=== PATIENT | female | born 1945 | race Caucasian/White ===

== ENCOUNTER 2018-11-17 06:48 | Inpatient (IN) ==
[2018-11-17] MEDS ORDERED: NS 1,000 ML IV ONE ×3 (07:26→09:27)
[2018-11-17] MEDS ORDERED: ZOFRAN IV ONE (07:26)
[2018-11-17] MEDS ORDERED: MORPHINE IV ONE ×2 (07:27→08:25)
--- NOTE | 2018-11-17 07:28 | PROVIDER DOCUMENTATION ---
HPI-Abdominal Pain/GI Problem - General Chief Complaint: Flank Pain Stated Complaint: RT FLANK PAIN/HAVE ONE KIDNEY Time Seen by Provider: 11/17/18 07:24 Source: patient Allergies/Adverse Reactions: Patient Allergies Allergy/AdvReac Type Severity Reaction Status Date / Time codeine [Codeine] Allergy Intermediate ITCHING Verified 11/17/18 08:14 hydromorphone HCl * Allergy Unknown ITCHING Verified 11/17/18 08:14 [From Dilaudid] cefaclor [From Ceclor] Allergy Unknown Verified 11/17/18 08:14 fesoterodine fumarate * Allergy DRY MOUTH Verified 11/17/18 08:14 [From Toviaz] Home Medications: Home Medication List Medication Instructions Recorded Confirmed Last Taken Type Bupropion X.l. [Wellbutrin Xl] 1 tab PO DAILY 12/13/17 11/17/18 Unknown History Sertraline HCl [Zoloft] 100 mg PO 12/13/17 Unknown History Omeprazole 1 cap PO DAILY 11/17/18 11/17/18 Unknown History - History of Present Illness-ABD Nature of Presenting Problems: COMPLAINS OF PAIN RIGHT FLANK SIMILAR TO PRIOR KIDNEY STONES. NO FEVER. NO HEMATURIA. NAUSEA / VOMITING PRESENT. NO DIARRHEA Abdominal Pain Onset Location: reports: flank Pain Radiation: reports: no radiation Quality of Pain: reports: sharp Severity in ED: reports: moderate Onset/Duration: reports: 1 hour ago, 1-3 hours ago Timing: reports: still present Activities at Onset: reports: none Modifying Factors: improves with: nothing Associated Symptoms: reports: vomiting. denies: chest pain, fever/chills Review of Systems - Adult - REVIEW OF SYSTEMS - ADULT Constitutional: reports: no symptoms reported Cardiovascular: reports: no symptoms reported Respiratory: reports: no symptoms reported Neurological: reports: no symptoms reported All Other Systems: Reviewed and Negative Past History - Adult - PAST MEDICAL HISTORY-ADULT Review of Records: reports: Nursing Assessment Review, Medications Reviewed, Social history reviewed & non-contributory. Major Childhood Illnesses: reports: denies history Cardiovascular: reports: denies history Respiratory: reports: denies history Gastrointestinal: reports: GERD, hemorrhoids Obstetrical/Gynecological: reports: denies history Genitourinary: reports: kidney stones, chronic UTI's Musculoskeletal: reports: arthritis Neurological: reports: denies history Psychiatric: reports: depression Endocrine/Immune: reports: denies history Other Conditions: reports: denies history - PRIOR SURGERIES/PROCEDURES Surgical/Procedure History: reports: appendectomy, hysterectomy, other ( hemmorhoids) - PRIOR HOSPITALIZATIONS Prior Hospitalizations: reports: none - IMMUNIZATION STATUS Childhood Immunizations: NUTD Flu Vaccine: NUTD - FAMILY HISTORY Family History: reviewed, not pertinent - SOCIAL HISTORY Substance Use: denies Physical Exam-General - PHYSICAL EXAM-ADULT Initial Vital Signs Reviewed: Yes - CONSTITUTIONAL General Appearance: alert - EYES Eyes: PERRL/EOMI - HEAD, EARS, NOSE, MOUTH & THROAT HENMT: normocephalic/atraumatic, moist mucous membranes - NECK Neck: non-tender, full range of motion, supple - RESPIRATORY Respiratory: lungs clear, normal breath sounds, no respiratory distress - CARDIOVASCULAR Cardiovascular: normal peripheral pulses, regular rate, rhythm - GASTROINTESTINAL (ABDOMEN) Abdominal Exam: normal bowel sounds, soft, no organomegaly, no pulsatile mass, tenderness (RT FLANK). negative: distended, guarding - MUSCULOSKELETAL Back Exam: normal inspection Extremity: normal range of motion, normal gait, normal inspection - SKIN Integumentary: warm/dry. negative: rash - NEUROLOGIC Neurologic: no motor/sensory deficits Progress - PLAN OF CARE/RESULTS Progress/Plan/Lab Results: Vital Signs - 8 hr 11/17/18 06:55 Temperature 98.0 F Pulse Rate 80 Respiratory Rate 20 Blood Pressure 126/104 O2 Sat by Pulse Oximetry 100 Orders Category Date Time Status Saline Loc NOW Care 11/17/18 07:[address] ABDOMEN/PELVIS W/O CONTRAST [CT] Stat Exams 11/17/18 07:26 Ordered CBC WITH ELECTRONIC DIFF [HEME] Stat Lab 11/17/18 07:10 Ordered CMP [COMPREHENSIVE METABOLIC PANEL] [CHEM] Stat Lab 11/17/18 07:10 Uncollected UA NIMS W/REFLEX CULT [URINALYSIS] Stat Lab 11/17/18 06:51 Uncollected Morphine Med 11/17/18 07:27 Once 3 mg IV NOW ONE Ns 1000 ml IV Bolus X1 Med 11/17/18 07:26 Ordered 0.9% Sodium Chloride Inj [Ns] 1,000 ml IV 999 mls/hr Ondansetron [Zofran] Med 11/17/18 07:26 Once 4 mg IV NOW ONE Result Diagrams: 11/17/18 08:30 11/17/18 08:30 - REASSESSMENT Reassessment #1 Time Reassessed: 09:26 Status: improving (still in pain. ct reveals 4 mm stone distal rt ureter . discussed with dr bronson will admit. dr magana aware and will consult and see patient) Departure - Departure Date of Disposition Decision: 11/17/18 Time of Disposition Decision: 09:26 DIAGNOSIS: Left ureteral calculus Disposition: ADMITTED INPATIENT 09 Certified Medical Emergency: Emergent Condition: Stable Referrals and Follow-Ups: Randy Bronson MD [Primary Care Provider] - - Critical Care Note This patient required my direct & personal management of CC.: No Attestation - Physician/ IGOR Attestation Patient care was provided by Advanced Practice Provider:: No The physician spent face to face time with patient:: Yes Advanced Practice Provider documentation review:: Supervising physician onsite and consulted in the evaluation and care of this patient. The physician did have a face to face encounter with the patient.
--- NOTE | 2018-11-17 08:32 | Diag Imaging Result Doc PS360 ---
EXAM: CT ABDOMEN/PELVIS W/O CONTRAST 11/17/2018 HISTORY: FLANK PAIN TECHNIQUE: This exam was performed using automated exposure control, adjustment of mA or kV according to patient size, and/or use of iterative reconstruction technique. COMMENT: There is a large hiatal hernia. There are increased interstitial opacities present in the right lower lobe and to some extent the left lower lobe similar in appearance to 05/30/2016. There are denser irregular opacities posteriorly in the right costophrenic sulcus and laterally which may represent pneumonia. This was not present previously. There is marked hydronephrosis on the right with hydroureter the latter was not present at the time the previous examination and there is a stone present in the distal ureter measuring over 4 mm in diameter. There has been left nephrectomy. There are no apparent gallstones. There are granulomata in the liver and spleen. There is some stool throughout the colon. Small bowel is not distended. The aorta is normal in caliber. There is no evidence of significant adenopathy. There has been previous hysterectomy. There is no evidence of appendicitis. The urinary bladder is unremarkable. There is calcium pyrophosphate deposition in the symphysis pubis. There is ankylosis of the facet joints at L5-S1. There is no evidence of acute bony abnormality. There has been kyphoplasty at L2. IMPRESSION: 1. Hiatal hernia and right lower lobe pneumonia. 2. Right hydronephrosis and distal ureterolithiasis. There may be a parapelvic cysts contributing to the appearance of hydronephrosis on the right which were present previously. Electronically signed by Quique Vasquez 11/17/2018 8:29 AM
[2018-11-17] MEDS ORDERED: BENADRYL ONE (08:35)
[2018-11-17] MEDS ORDERED: BENADRYL IV ONE (08:36)
[2018-11-17 08:39] LABS: BASO# 0.01 X1000 (0.0-0.2); BASO% 0.1 % (0.0-0.8); EOS# 0.05 X1000 (0.0-0.7); EOS% 0.7 % (0.0-10.0); IMM GRAN# 0.02 X1000 (0.0-0.04); IMM GRAN% 0.3 % (0.0-0.5); LYMPH% 20.9 % (20.5-51.1); MCH 29.8 PG (27-31); MCHC 33.3 g/dL (33-37); MCV 89.4 FL (81-99); MONO# 0.55 X1000 (0.11-0.59); MONO% 8.2 % (1.7-9.3); MPV 11.6 FL (7.4-10.4); NEUT# 4.66 X1000 (1.4-6.5); NEUT% 69.8 % (42.2-75.2); PLT 126 X1000 (130-400); RDW 14.4 % (11.5-14.5); WBC 6.69 X1000 (4.8-10.8)
[2018-11-17 08:52] LABS: URINE SOURCE CATH
[2018-11-17 08:55] LABS: BILIRUBIN URINE NEGATIVE (NEGATIVE); BLOOD URINE MODERATE (NEGATIVE); COLOR YELLOW; GLUCOSE URINE NEGATIVE (NEGATIVE); KETONE URINE NEGATIVE (NEGATIVE); LEUKOCYTES URINE NEGATIVE (NEGATIVE); NITRITE URINE NEGATIVE (NEGATIVE); PH URINE 5.5; PROTEIN URINE NEGATIVE (NEGATIVE); SP GRAVITY URINE 1.017; TURBIDITY URINE CLEAR (CLEAR); UR EPITHELIAL CELLS <10 /HPF (<10); URINE BACTERIA NEGATIVE /HPF; URINE RBC 20-40 /HPF (<10); URINE WBC <10 /HPF (<10); UROBILINOGEN URINE NORMAL (NORMAL)
[2018-11-17 09:06] LABS: ALB/GLOB RATIO 1.4; ALBUMIN 3.9 g/dL (3.5-5.0); CALCIUM 9.4 mg/dL (8.8-10.2); CREATININE 1.6 mg/dL (0.5-0.9); POTASSIUM 5.4 mmol/L (3.5-5.1); TOTAL BILIRUBIN 0.46 mg/dL (0.20-1.00); TOTAL PROTEIN 6.7 g/dL (6.3-8.3)
[2018-11-17] MEDS ORDERED: LEVAQUIN 500 MG/D5W 500 MG/100 ML IVPB IV ONE (09:59)
[2018-11-17] MEDS ORDERED: HURRICAINE SPRAY (DOSE) ONE (10:10)
[2018-11-17] MEDS ORDERED: XYLOCAINE-MPF 2% ONE (10:16)
[2018-11-17] MEDS ORDERED: ROBINUL ONE (10:16)
[2018-11-17] MEDS ORDERED: DIPRIVAN 1% ONE (10:16)
[2018-11-17] MEDS ORDERED: ZEMURON ONE (10:17)
[2018-11-17] MEDS ORDERED: QUELICIN (DOSE) ONE (10:17)
[2018-11-17] MEDS ORDERED: FENTANYL ONE (10:17)
[2018-11-17] MEDS ORDERED: LEVAQUIN 500 MG/D5W 500 MG/100 ML IVPB ONE (10:39)
[2018-11-17] MEDS ORDERED: ZOFRAN ONE (10:42)
[2018-11-17] MEDS ORDERED: EPHEDRINE ONE (11:16)
[2018-11-17] MEDS ORDERED: SODIUM CHLORIDE 0.9% 10 ML ONE (11:16)
[2018-11-17] MEDS ORDERED: NORCO-7.5 PO PRN (11:50)
--- NOTE | 2018-11-17 12:26 | Diag Imaging Result Doc PS360 ---
EXAM: FLUROSCOPY CYSTO 11/17/2018 HISTORY: RT.STENT,RT.STONE TECHNIQUE: Seven images fluoroscopy time nine seconds dose 13 mGy COMMENT: There has been kyphoplasty at the T11 and L2 levels. A right ureteral stent was placed by Dr. Coats. IMPRESSION: Right ureteral stent placement. Electronically signed by Quique Vasquez 11/17/2018 12:23 PM
[2018-11-17] MEDS: MORPHINE ONE ×2 (13:25→22:17)
[2018-11-17] MEDS: MORPHINE IV PRN ×4 (15:12→23:32)
--- NOTE | 2018-11-17 17:56 | CONSULTATION ---
DATE OF CONSULTATION: 11/17/2018 CONSULTING PHYSICIAN: Emergency room staff. CONSULTATION FOR: Obstructing ureteral stone in the setting solitary kidney, intractable pain, nausea. HISTORY OF PRESENT ILLNESS: 72-year-old female known to me secondary to history of left ureteropelvic junction obstruction and complex peripelvic cysts for which she underwent left nephrectomy in 2014. She has been followed for her solitary kidney. She was seen last in office and sent by me in November 2017 at which point, her ultrasound was done and the kidney appeared to be healthy without evidence of urolithiasis. She developed severe right flank pain that started in back and radiated over her lower abdomen. The pain is sharp, constant, 10/10 in severity. Nothing makes it worse. Nothing makes it better. She reports associated nausea and chills. She denies gross hematuria, vomiting. She presented to the emergency room where CT scan was done revealing 4 mm right distal ureteral obstructing stone with significant hydroureteronephrosis. She continues to have significant pain. PAST MEDICAL HISTORY: GERD, diabetes mellitus, peripelvic renal cyst, stress urine incontinence, cystocele, rectocele, depression. PAST SURGICAL HISTORY: Appendectomy, herniorrhaphy, rotator cuff repair, bladder tack, left robotic nephrectomy. ALLERGIES: Codeine, Dilaudid, cefaclor, fesoterodine. HOME MEDICATIONS: Wellbutrin, Zoloft. SOCIAL HISTORY: Occasional caffeine, denies tobacco, alcohol or illicit drug use. FAMILY HISTORY: Negative for malignancies. REVIEW OF SYSTEMS: Reviewed in 12 systems and is negative with exception to the HPI. PHYSICAL EXAMINATION: T 98, P 80, BP 126/104.General: Pleasant female in mild distress secondary to pain. HEENT: Normocephalic, atraumatic. Cardiovascular: Regular rate, rhythm. Pulmonary: Bilateral breath sounds. Abdomen: Tender to palpation on the right side. No involuntary guarding. No peritoneal signs noted. Back: CVA tenderness on the right. : Bladder is nontender to palpation. Dermatologic: No obvious skin rashes. Neurologic: Alert and oriented x3. Psychiatric: Appropriate mood and affect. PERTINENT LABS: Her white cell count is 7000, platelet count is 126,000, hematocrit 42, potassium is 5.4, creatinine is 1.6. Her urinalysis positive for blood, a few white cells but negative for bacteria. PERTINENT IMAGES: CT abdomen and pelvis without contrast per HPI revealing obstructing right distal ureteral stone. ASSESSMENT AND PLAN: A 72-year-old female with solitary right kidney who has obstructing distal ureteral stone, significant hydronephrosis, intractable pain, nausea. I have discussed with the patient that given her solitary kidney, it is a semiemergent situation. We discussed cystoscopy with right ureteroscopy, laser lithotripsy, stone basket extraction, possible ureteral stent placement with risks including, but not limited to, bleeding, infection, injury to the kidney, injury to adjacent structures, inability to remove the entire stone and need for additional interventions explained. She voiced understanding wants to proceed. PLAN: To operating room now for cystoscopy, right ureteroscopy, laser lithotripsy, stone basket extraction, placement of right ureteral stent. cc: MD Randy Bell MD
[2018-11-17] MEDS ORDERED: ZOFRAN IV PRN (19:27)
[2018-11-17] MEDS ORDERED: DESYREL PO PRN (19:32)
[2018-11-17] MEDS: BENADRYL IV PRN (21:12)
[2018-11-17] MEDS: NS 1,000 ML IV SCH (21:13)
--- NOTE | 2018-11-18 01:53 | OPERATIVE NOTE ---
PROCEDURE DATE: 11/17/2018 SURGEON: Rodolfo Coats MD PREOPERATIVE DIAGNOSIS: Solitary right kidney, right distal ureteral stone, hydronephrosis, intractable pain, nausea. PROCEDURE: Cystoscopy, right ureteroscopy with stone basket extraction, placement of 6-[place], 24 cm right ureteral stent. INDICATIONS: A 72-year-old female with solitary kidney, who presented with obstructing distal ureteral stone and significant pain and nausea. She was counseled on intervention with ureteroscopy, and desires to proceed. FINDINGS: Obstructing distal ureteral stone, approximately 1 cm away from the ureteral orifice. It was successfully extracted with a basket. There was significant mucosa of the distal right ureter, and given her solitary kidney and that mucosal edema, a ureteral stent was placed. The stone was sent off for analysis. DESCRIPTION OF PROCEDURE: After obtaining informed consent, the patient was brought to the operating room. Perioperative antibiotics and general endotracheal anesthesia were administered. She was placed in lithotomy position, prepped and draped in sterile fashion. A 21-[place]izen [place] rigid cystoscope was used to gain access to the bladder, which was examined in systematic fashion. Of note, she has a grade 3 cystocele, as well as a vaginal prolapse and rectocele. Bladder was inspected with the cystoscope, without evidence of mucosal lesions, excessive trabeculations, diverticula noted. There were no stones within the bladder lumen. We turned our attention to the right ureteral orifice, which was cannulated with PTFE wire. There was resistance just a centimeter or 2 from the ureteral orifice, but eventually I was able to introduce the wire up to the level of the right renal pelvis, as confirmed by fluoroscopy. I then introduced the rigid ureteroscope alongside of the wire, and the stone was seen within a centimeter from the ureteral orifice. It was jagged in appearance, and was associated with significant mucosal edema. I was able to place a 0 Nitinol basket around the stone, and then gently repositioned it in a more favorable orientation, and guided it out in 1 piece. It was submitted for analysis. Repeat ureteroscopy to the level of the mid ureter revealed fairly significant hydroureteronephrosis, but no evidence of residual stone fragments, and no evidence of ureteral injury. The ureteroscope was removed. Given the significant mucosal edema, and her solitary kidney, we placed a ureteral stent. In standard fashion, a 6-[place], 24 cm stent was advanced over the wire via the cystoscope, with the proximal coil position confirmed fluoroscopically, distal coil directly visualized. The string was left attached to the stent. Bladder was emptied. She was extubated and taken to the PACU for further recovery. ESTIMATED BLOOD LOSS: None. COMPLICATIONS: None. DISPOSITION: To PACU, and subsequently now floor, to be admitted by Dr. Bronson for observation. cc: MD Randy Bell MD
--- NOTE | 2018-11-18 03:18 | HISTORY AND PHYSICAL ---
PRIMARY CARE PHYSICIAN: Dr. Randy Bronson. CHIEF COMPLAINT: Intractable right flank pain. HISTORY OF PRESENT ILLNESS: A 72-year-old white female, with a complicated past medical history, who presents for evaluation of above-mentioned symptoms. Current history of present illness began at approximately 6 a.m. At that time, the patient awoke with intractable right lumbar spine pain. Quickly, the patient's condition progressed to include nausea and vomiting. With the progression of symptoms, the patient presented to the emergency department for further evaluation and management. Full evaluation was pursued. CT scan renal stone search suggested a hiatal hernia and a right lower lobe pneumonia. Right hydronephrosis and distal ureterolithiasis was noted. Laboratory data was significant for hyperkalemia, with a potassium of 5.4, and a creatinine increased from baseline to 1.6. Dr. Coats was consulted, and the patient was taken for surgical intervention. Of note, patient has had mild cough and congestion, but denies fevers, chills, shortness of breath, dysuria, hematuria, or pyuria. PAST MEDICAL HISTORY: 1. Allergic rhinitis. 2. History of acute appendicitis, status post open appendectomy in the . 3. History of atypical chest pain, with negative cardiac evaluation in 2010 and 2013. 4. Multiple brown nevi and actinic keratoses. 5. Bilateral cataracts. 6. Depression/anxiety. 7. Reflux disease. 8. History of lumbar compression fracture, status post kyphoplasty in 2008 and 2012. 9. Hiatal hernia. 10. Hyperlipidemia. 11. Chronic low back pain. 12. Menopause. 13. Microscopic hematuria. 14. History of nephrolithiasis. 15. Osteoarthritis. 16. Osteopenia. 17. History of pelvic cyst. 18. Elevated blood pressure, without the diagnosis of hypertension. 19. Pyelonephritis, ultimately requiring left nephrectomy in 2014. 20. Chronic thrombocytopenia. 21. Urinary incontinence. 22. Uterine prolapse, status post HEIDI in the late . CURRENT MEDICATIONS: 1. Anusol HC suppository q.12 hours as needed. 2. Omeprazole 40 mg daily. 3. Sertraline 100 mg 1-1/2 tablets daily. 4. Wellbutrin XL 150 mg daily. 5. Zofran as needed. ALLERGIES: Patient states she is allergic to Ceclor and Toviaz. SOCIAL HISTORY: Patient denies tobacco, alcohol, or illicit drug use. She is retired from [employer]. She exercises intermittently. FAMILY HISTORY: Patient's father passed at age 86 due to complications of Alzheimer disease. Patient's mother passed at age 78 secondary to complications of breast cancer. REVIEW OF SYSTEMS: A 12 point review of systems was performed. Pertinent positives and negatives are noted in the history of present illness. PHYSICAL EXAMINATION: VITAL SIGNS: Temperature 98.1 degrees, heart rate 74, respirations 15, blood pressure is 113/58. GENERAL: Well-nourished, well-developed, no acute distress. HEENT: Normocephalic, atraumatic. Pupils equal, round, react to light. Extraocular muscles intact. Sclerae anicteric. [place] conjunctivae. Oral and nasopharynx clear, without exudate. NECK: Supple. No lymphadenopathy. No thyromegaly. No bruits auscultated. CARDIOVASCULAR: Regular rate and rhythm. No significant murmurs, rubs, or gallops. PULMONARY: Clear to auscultation bilaterally. ABDOMEN: Soft, nontender, nondistended. Positive bowel sounds. EXTREMITIES: Moves all extremities well. No significant clubbing, cyanosis, or edema. NEUROLOGIC: Cranial nerves 2-12 are grossly intact. Motor and sensory grossly intact. Psychologic examination is appropriate. LABORATORY DATA: White blood cell count 6.69, hemoglobin 14.0, hematocrit 42.0, platelet count 126,000. Sodium 136, potassium 5.4, chloride 105, bicarb 18, BUN 25, creatinine 1.6, glucose 118. Calcium 9.4. Total bilirubin 0.46, total protein 6.7, albumin 3.9, alkaline phosphatase 78, AST 30, ALT 15. ASSESSMENT AND PLAN: A 72-year-old white female, with a complicated past medical history as noted, presents for evaluation of intractable lumbar spine pain, with associated nausea and vomiting. The patient was found to have a distal right ureteral fibrosis with hydronephrosis. She was taken for surgical intervention. A stent was placed. The patient will be admitted to the hospital for further evaluation and management of postoperative stent placement, hyperkalemia, yzcbx-fu-vdxqoek kidney disease, and possible underlying pneumonia. 1. Admit to General Medicine. 2. Symptomatic right ureteral lithiasis, with associated hydronephrosis - The patient is status post surgical intervention with removal and stent placement by Dr. Ananyev. We will aggressively, but cautiously, hydrate. We will continue as needed pain medications. 3. Bxelf-xa-jvpccqw kidney disease - Patient's baseline creatinine is approximately 1 to 1.2. Creatinine today is 1.6. We will remain aware that she has had a left nephrectomy. We will aggressively, but cautiously,hydrate. 4. Hyperkalemia - Potassium is slightly elevated at 5.4. We will hydrate as described. 5. Possible pneumonia - The patient was found to have an irregular opacity posteriorly in the right costophrenic sulcus, and laterally, which may represent pneumonia per CT scan. At this point, with a normal white blood cell count, and no fever, I am unsure as to the potential etiology. We will treat patient with Zosyn for potential aspiration. We will need to follow this as an outpatient. 6. Reflux disease - We will continue patient on omeprazole therapy. 7. Intractable nausea and vomiting - This likely is secondary to her urinary obstruction. She has achieved improvement since surgery. We will continue Zofran as needed. 8. Fluid/electrolytes/nutrition. We will monitor electrolytes. Normal saline at 55 mL an hour. Regular diet. 9. Prophylaxis. Patient will be placed on SCDs. cc: Randy Bronson MD
[2018-11-18 06:25] LABS: BASO# 0.01 X1000 (0.0-0.2); BASO% 0.1 % (0.0-0.8); EOS# 0.04 X1000 (0.0-0.7); EOS% 0.6 % (0.0-10.0); HEMATOCRIT 39.8 % (37.0-47.0); HEMOGLOBIN 12.6 g/dL (12.0-16.0); LYMPH# 1.07 X1000 (1.2-3.4); LYMPH% 15.7 % (20.5-51.1); MCH 29.6 PG (27-31); MCHC 31.7 g/dL (33-37); MCV 93.4 FL (81-99); MONO# 0.78 X1000 (0.11-0.59); MONO% 11.5 % (1.7-9.3); MPV 11.9 FL (7.4-10.4); NEUT# 4.91 X1000 (1.4-6.5); NEUT% 72.1 % (42.2-75.2); PLT 111 X1000 (130-400); RBC 4.26 XMIL (4.2-5.4); RDW 14.7 % (11.5-14.5); WBC 6.81 X1000 (4.8-10.8)
[2018-11-18] MEDS ORDERED: PRILOSEC PO SCH (07:00)
[2018-11-18 07:06] LABS: ALB/GLOB RATIO 1.5; ALBUMIN 3.7 g/dL (3.5-5.0); CALCIUM 8.3 mg/dL (8.8-10.2); CREATININE 1.4 mg/dL (0.5-0.9); POTASSIUM 4.2 mmol/L (3.5-5.1); TOTAL BILIRUBIN 0.51 mg/dL (0.20-1.00); TOTAL PROTEIN 6.1 g/dL (6.3-8.3)
[2018-11-18] MEDS ORDERED: LEVAQUIN 500 MG/D5W 500 MG/100 ML IVPB IV SCH (08:00)
[2018-11-18] MEDS: NS 1,000 ML IV SCH (08:05)
[2018-11-18] MEDS: BENADRYL IV PRN (08:33)
[2018-11-18] MEDS ORDERED: ZOLOFT PO SCH (09:00)
[2018-11-18] MEDS ORDERED: WELLBUTRIN XL PO SCH (09:00)
[2018-11-18 11:42] VITALS: BP 114/77
--- NOTE | 2018-11-19 08:31 | DISCHARGE SUMMARY ---
ADMISSION DATE: 11/17/2018 DISCHARGE DATE: 11/18/2018 ADMISSION DIAGNOSIS: Intractable right flank pain. DISCHARGE DIAGNOSES: 1. Symptomatic right ureterolithiasis with associated hydronephrosis. 2. Hqmrz-nz-xvyhvje kidney disease. 3. Hyperkalemia, resolved. 4. Possible pneumonia. 5. Reflux disease. 6. Intractable nausea and vomiting, resolved. CONSULTATIONS: Dr. Rodolfo Coats with Urology was consulted for further evaluation and management of right ureteral stone in the setting of a lone kidney. PROCEDURES: 1. A cystoscopy, right ureteroscopy with stone basket extraction, and placement of a 6-[place] 24 cm right ureteral stent was performed on 11/17/2018. 2. A CT scan of the abdomen and pelvis was performed on 11/17/2018 which revealed hiatal hernia and right lower lobe pneumonia. Right hydronephrosis and distal ureterolithiasis. There may be a parapelvic cyst contributing to the appearance of hydronephrosis on the right which was present previously. HISTORY AND PHYSICAL EXAMINATION: See admit note. PHYSICAL EXAMINATION PRIOR TO DISCHARGE: Vital Signs: Temperature 98.7, heart rate 118, respirations 16, blood pressure is 114/77. General: Well-nourished, well-developed, in no acute distress. Cardiovascular: Regular rate and rhythm. No significant murmurs, rubs, or gallops. Pulmonary: Clear to auscultation bilaterally. Abdomen: Soft, nontender, nondistended. Positive bowel sounds. Extremities: Moves all extremities well. No significant clubbing, cyanosis, or edema. Dermatologic: Evaluation reveals no evidence of rash. LABORATORY DATA: Prior to discharge, white blood cell count is 6.81. Hemoglobin 12.6, hematocrit 39.8, platelet count is 111,000. Sodium 141, potassium 4.2, chloride 108, bicarb 21. BUN 21, creatinine 1.4. Glucose 107. Calcium 8.3. Total bilirubin 0.51. Total protein 6.1, alkaline phosphatase 74, AST 21, ALT 12. HOSPITAL COURSE: The patient was admitted as per history and physical examination. Hospital course per condition is as follows: 1. Symptomatic right ureterolithiasis with associated hydronephrosis in a patient with a lone kidney - Upon admission, the patient was noted to have acute symptoms including nausea, vomiting, and pain. CT scan confirmed this diagnosis. Because of acute renal failure and a lone kidney, Dr. Coats was immediately consulted and the patient was taken for surgical intervention. The patient tolerated this quite well. On the day of discharge, the patient noted mild pain, but significantly improved from yesterday. She will be discharged home with a limited amount of pain medications. Follow up with Dr. Coats has been arranged. 2. Sexvn-zz-abylvfu kidney disease - Upon admission, patient's creatinine was noted to be 1.6. Baseline is between 1 and 1.2. With hydration and treatment of her ureterolithiasis, the patient did achieve improvement. Discharge creatinine is 1.4. We will continue to encourage hydration. 3. Hyperkalemia - Patient was noted upon admission. With treatment, the patient has achieved improvement. Discharge potassium is 4.2. 4. Pneumonia - The patient was found to have an irregular opacity posterior in the right costophrenic sulcus and laterally. The patient will be started on levofloxacin therapy to complete 7 days. We will consider repeat CT scans as an outpatient. She notes cough but denies fevers and chills. 5. Reflux disease - Patient was continued on omeprazole therapy. Symptoms remain controlled. 6. Intractable nausea and vomiting - This was likely secondary to hydroureter and hydronephrosis. With treatment, symptoms improved. We will discharge patient with as needed Zofran. DISCHARGE CONDITION: Good. DISPOSITION: Discharged to home. MEDICATIONS: 1. Zofran 4 mg every 6 hours as needed. 2. Hydrocodone/acetaminophen 7.5/325 every 6 hours as needed. 3. Levaquin 500 mg daily for 7 days. 4. Wellbutrin XL 150 mg daily. 5. Omeprazole 40 mg daily. 6. Sertraline 100 mg daily. FOLLOWUP: The patient is to follow up with Dr. Coats as arranged. The patient is to follow up with me in approximately 1 to 2 weeks. cc: Randy Bronson MD
== END 2018-11-18 15:09 | disposition home or self-care (01) | DRG 659 ==
LOC: ED 06:48 → EDIPHOLD 10:00 → 4N 14:37
PROVIDERS: ADMIT Internal Medicine; ATTEND Internal Medicine
CPT/HCPCS: 74176; 76000; 80053; 81001; 82360; 85025; 88300; 94761; 94799; 96374; 96375; 96376; 99285; A9270; J0330; J1200; J1956; J2270; J2405; J3010; J7030